=== PATIENT | female | born 1945 | race Caucasian/White ===

== ENCOUNTER → 2018-06-18 12:32 | Day surgery (SDC) | payer MEDICARE, OTHER ==
[~2018-06-18] VITALS: Ht 157.5 cm; Wt 65.0 kg
[~2018-06-18 12:32] MED LIST: ALDACTONE50 MG PO; ANASTROZOLE PO; FERROUS SULFAT325 MG PO; FLUTICASONE PRO16 GM; HYDROXYZINE HCL50 MG PO; LIPITOR80 MG PO; METOPROLOL TART50 MG PO; PLAVIX75 MG PO; PROAIR INHALER; PROTONIX40 MG PO
[2018-06-18 13:06] LABS: BASOPHILS 0.6 % (0-2); EOSINOPHILS 1.8 % (0-7); HEMOGLOBIN 13.2 g/dL (12-16); IMMATURE GRANULOCYTES 0.4 % (0-5); LYMPHOCYTES 18.2 % (15-50); MCH 26.6 pg (26.0-34.0); MCHC 30.7 g/dL (31.0-37.0); MCV 86.5 fL (80.0-100.0); MEAN PLATELET VOLUME 9.8 fL (7.4-10.4); MONOCYTES 7.7 % (2-11); NEUTROPHILS 71.3 % (40-80); PLATELET COUNT 320 10x3/uL (130-400); RBC 4.97 10x6/uL (4.00-5.40); RDW 21.6 % (11.5-14.5); WBC 7.2 10x3/uL (4.8-10.8)
[2018-06-18 13:21] LABS: ANION GAP 17.5 mmol/L (8-16); CARBON DIOXIDE 23.9 mmol/L (21.0-32.0); POTASSIUM - SERUM 5.4 mmol/L (3.5-5.1)
[2018-06-18 15:03] VITALS: BP 163/75; Ht 157.5 cm; Wt 65.0 kg
--- NOTE | 2018-06-19 17:15 | OP ---
PATIENT NAME: JUAN F HERNADEZ MEDICAL RECORD: [id number] :46 LOCATION:D.[facility] ADMISSION DATE: SURGEON: DAJUAN TOMAS MD DATE OF OPERATION: 06/18/2018 PROCEDURE: EGD with biopsy. PRIMARY CARE PHYSICIAN: Ivy Anand MD SMOKEHOUSE WORKER/ONCOLOGIST: Dr. Betty Ruelas. ROOF BOLTING COAL MINER: Abilio Crum MD INDICATIONS: Ms. Hernadez is a pleasant 72-year-old woman with a history of iron deficiency anemia who has had symptoms of heartburn, nausea, vomiting, and right upper quadrant pain, which began in the fall of 2018 and occurs intermittently. She has been taking Protonix 40 mg daily with relief of her heartburn. She has symptoms of nausea and vomiting if "gets hot," i.e., after shopping and returning home she may vomit. Her last EGD was 07/2015 with finding showing a hiatal hernia, erosive gastritis, and duodenitis. Her last colonoscopy was 11/2015 with finding showing internal hemorrhoids, normal appearing terminal ileum. Today, her hemoglobin was 13.2 with an MCV of 86.5. She presents for outpatient EGD. PREMEDICATIONS: Total IV anesthesia (history of asthma and breast cancer) and propofol 100 mg. INSTRUMENT: Olympus video gastroscope. PROCEDURE AND FINDINGS: After receiving informed consent, Ms. Hernadez's posterior pharynx was anesthetized with Cetacaine spray. She was placed in left lateral decubitus position, sedated as per anesthesia. After achieving adequate level of sedation, gastroscope was introduced per orally and advanced into the duodenum without difficulty. The mid and upper esophageal mucosa was without erythema or ulcers. The lower third of the esophagus was notable for patches of erythema just proximal to the Z line and lower distal third of the esophagus mucosa was biopsied. Small hiatal hernia is present. Gastric mucosa was notable for mild diffuse antral erythema and antral biopsies were obtained to rule out Helicobacter pylori. There were also few scattered erosions in the antrum, nonhemorrhagic. No lesions. There was also some patchy erythema noted in the body of the stomach, the mucosa of the cardia, and fundus appeared normal. Pylorus was patent and competent. There was patchy erythema noted at the apex of the duodenal bulb. Duodenal mucosa was without erythema or ulcers and appeared normal to the second portion of the duodenum. Biopsies were taken from the second portion of duodenum to rule out celiac disease. There was a small 0.25 to 0.3 cm sessile polyp in the second portion of the duodenum just distal to the first portion and was cold biopsied. Gastroscope was then withdrawn. Ms. Hernadez tolerated the procedure well. No immediate complications. ASSESSMENT: 1. Mild esophagitis, likely secondary to gastroesophageal reflux disease. 2. Small hiatal hernia. 3. Mild erosive gastritis. 4. Duodenitis. OPERATIVE REPORT [id number] JUAN F HERNADEZ 5. Duodenal polyp. RECOMMENDATIONS: 1. Follow up histopathology. 2. Avoid nonsteroidal anti-inflammatory drugs. 3. Resume home medications. 4. Increase Protonix to 40 mg p.o. b.i.d. 5. Gastric emptying scan. 6. Colonoscopy as scheduled. TRANSINT:[id number] Voice Confirmation ID: [id number] DOCUMENT ID: [id number] DAJUAN TOMAS MD at 1715 CC: ERIK RUELAS MD, IVY ANAND MD and ABILIO CRUM [id number] DICTATION DATE: 06/18/18 1621 SPOT WASHER: 06/19/18 0101 [facility] 06/18/18 [id number] [place] [address]
== END | disposition home or self-care (01) ==
LOC: D.OPS 12:32
PROVIDERS: ATTEND Internal Medicine Gastroenterology
DX: K29.80 Duodenitis without bleeding (principal); K31.7 Polyp of stomach and duodenum; K20.8 Other esophagitis; K44.9 Diaphragmatic hernia without obstruction or gangrene; K29.00 Acute gastritis without bleeding; Z01.812 Encounter for preprocedural laboratory examination

== ENCOUNTER → 2018-06-21 10:17 | Outpatient (CLI) | payer MEDICARE, OTHER ==
[2018-06-18 15:03] VITALS: BMI 26.2
== END | disposition home or self-care (01) ==
LOC: D.NM 10:17
PROVIDERS: ATTEND Internal Medicine Gastroenterology
DX: R11.2 Nausea with vomiting, unspecified (principal); R10.9 Unspecified abdominal pain

== ENCOUNTER 2018-08-27 08:24 | Day surgery (SDC) | payer MEDICARE, OTHER ==
[~2018-08-27] VITALS: Ht 157.5 cm; Wt 65.0 kg
[2018-08-27 09:34] LABS: ALBUMIN 4.1 g/dL (3.4-5.0); ANION GAP 17.8 mmol/L (8-16); BILIRUBIN - TOTAL 0.36 mg/dL (0.2-1.3); CALCIUM 7.2 mg/dL (8.5-10.1); CARBON DIOXIDE 21.7 mmol/L (21.0-32.0); CREATININE - SERUM 3.4 mg/dL (0.6-1.3); POTASSIUM - SERUM 4.5 mmol/L (3.5-5.1); PROTEIN - SERUM 8.1 g/dL (6.4-8.2)
[2018-08-27 09:55] VITALS: Ht 157.5 cm; Wt 65.0 kg
[2018-08-27 10:41] LABS: HEMATOCRIT 37.4 % (36.0-48.0); HEMOGLOBIN 12.2 g/dL (12-16); MCH 30.2 pg (26.0-34.0); MCHC 32.6 g/dL (31.0-37.0); MCV 92.6 fL (80.0-100.0); MEAN PLATELET VOLUME 10.1 fL (7.4-10.4); PLATELET COUNT 276 10x3/uL (130-400); RBC 4.04 10x6/uL (4.00-5.40); RDW 18.3 % (11.5-14.5); WBC 2.7 10x3/uL (4.8-10.8)
[2018-08-27 11:50] LABS: LYMPHOCYTES 24 % (15-50); MONOCYTES 11 % (2-11); NEUTROPHILS 63 % (40-80); PLATELET ESTIMATE NORMAL
--- NOTE | 2018-08-27 12:01 | NUR ---
DC INSTRUCTIONS GIVEN TO PT/FAMILY. STATE UNDERSTANDING. DC'D IV CATH FULLY INTACT.
--- NOTE | 2018-08-27 12:40 | NUR ---
PT LEFT UNIT VIA WC AT 1218
--- NOTE | 2018-08-27 17:14 | OP ---
PATIENT NAME: JUAN F HERNADEZ MEDICAL RECORD: [id number] :47 LOCATION:D.[facility] ADMISSION DATE: SURGEON: DAJUAN TOMAS MD DATE OF OPERATION: 08/27/2018 PROCEDURE: Colonoscopy with polypectomy. REFERRING PHYSICIAN: Ivy Anand MD SUPERVISOR REAL ESTATE OFFICE AND ONCOLOGIST: Dr. Betty Ruelas. UPHOLSTERY CUTTER: Dr. Crum. INDICATIONS: Ms. Hernadez is a pleasant 72-year-old woman with a history of heartburn, nausea, vomiting, right upper quadrant pain and weight loss. She had an EGD on 06/18/2018 with finding showing mild esophagitis, small hiatal hernia, mild erosive gastritis and duodenitis and a duodenal polyp. The duodenal biopsies showed no mucosal villous atrophy, the small duodenal polyp was hyperplastic in nature and distal esophageal biopsies showed gastroesophagitis, chronic, active, [id number] consistent with reflux type injury. She has had a gastric emptying scan on 06/21/2018 with finding showing a T1/2 of 142 minutes with normal being 60 minutes or less. She has been advised to eat smaller, but more frequent meals. Her last colonoscopy was 11/23/2015 with finding showing a normal terminal ileum and mild internal hemorrhoids. She presents for outpatient colonoscopy. PREMEDICATIONS: Total IV anesthesia (propofol 200 mg). INSTRUMENT: Olympus video colonoscope, pediatric. PROCEDURE AND FINDINGS: After receiving informed consent, Ms. Hernadez was placed in left lateral decubitus position, sedated as per anesthesia. After achieving an adequate level of sedation, digital rectal exams performed that showed no external hemorrhoidal tags, fissures or fistulas, normal sphincter tone, no palpable rectal masses. Colonoscope was introduced per rectally and advanced to the cecum without difficulty. The cecum, IC valve, and appendiceal orifice were identified. Within the cecum was a solitary diverticulum, nonhemorrhagic, nonbleeding. As the colonoscope was withdrawn, careful inspection was made of the javier of the colon. Overall, the mucosa had normal vascular and fold pattern. In the mid transverse colon was a small 0.25-0.3 cm sessile polyp, removed with hot biopsy forcep technique. There were few diverticula seen scattered in the sigmoid colon. Retroflexion in the rectum showed mild internal hemorrhoids. A [id number] prep was present. Ms. Hernadez tolerated the procedure well, no immediate complications. ASSESSMENT: 1. Small transverse colon polyp status post polypectomy. 2. Solitary diverticulum in the cecum and a few diverticula in the sigmoid colon, nonhemorrhagic. 3. Mild internal hemorrhoids. RECOMMENDATIONS: 1. Follow up histopathology. 2. High fiber diet. 3. Surveillance colonoscopy in 3 years pending nature of polyp histopathology. OPERATIVE REPORT [id number] JUAN F HERNADEZ TRANSINT:[id number] Voice Confirmation ID: [id number] DOCUMENT ID: [id number] DAJUAN TOMAS MD at 1714 CC: ERIK RUELAS MD, IVY ANAND MD and ABILIO CRUM [id number] DICTATION DATE: 08/27/18 1127 BUSINESS EDITOR: 08/27/18 1219 [facility] 08/27/18 [id number] [place] [address]
== END 2018-08-27 12:18 | disposition home or self-care (01) ==
LOC: D.OPS 08:24
PROVIDERS: Anesthesiology; ATTEND Internal Medicine Gastroenterology
DX: D12.3 Benign neoplasm of transverse colon (principal); K57.30 Diverticulosis of large intestine without perforation or abscess without bleeding; K64.8 Other hemorrhoids; Z01.812 Encounter for preprocedural laboratory examination